=== PATIENT | female | born 1950 | race Caucasian/White ===

== ENCOUNTER 2021-08-03 01:14 | Emergency (ER) | payer MEDICARE ==
[2021-08-03] MEDS ORDERED: PERCOCET 5-3251 EACH PO (04:19)
== END 2021-08-03 04:40 | disposition home or self-care (01) ==
LOC: FER 01:14
DX: S52.501A Unspecified fracture of the lower end of right radius, initial encounter for closed fracture (principal); S52.611A Displaced fracture of right ulna styloid process, initial encounter for closed fracture; I10 Essential (primary) hypertension; F17.210 Nicotine dependence, cigarettes, uncomplicated; W06.XXXA Fall from bed, initial encounter; Y92.009 Unspecified place in unspecified non-institutional (private) residence as the place of occurrence of the external cause
CPT/HCPCS: 73100; 73110; 96374; 99152; J1170

== ENCOUNTER → 2021-08-13 | Day surgery (SDC) | payer MEDICARE ==
[~2021-08-13] VITALS: Ht 170.2 cm; Wt 83.9 kg
[~2021-08-13] MED LIST: ASPIRIN EC81 M1 PO; ATORVASTATIN CA40 MG PO; CARVEDILOL3.125 MG PO; CLOPIDOGREL75 MG PO; ESCITALOPRAM OX20 MG PO; ISOSORBIDE MONO30 MG PO; LISINOPRIL2.5 MG PO; LORAZEPAM 0.5M0.5 MG PO; MONTELUKAST SOD10 MG PO; NITROGLYCERIN0.4 MG SL; PERCOCET 5-3251 EACH PO; ROPINIROLE HCL2 MG PO; SPIRONOLACTONE25 M1 PO; VENTOLIN HFA18 GM INH
[2021-08-13 06:56] LABS: HCT 39.2 % (37.0-47.0); HGB 13.2 g/dl (12.5-16.0); MCH 29.7 pg (25.0-31.0); MCHC 33.7 g/dL (32.0-36.0); MCV 88.1 fL (78.0-100.0); MPV 9.1 fL (6.0-9.5); RBC 4.45 M/uL (4.20-5.40); RDW 14.5 % (11.5-14.0); WBC 7.5 K/uL (4.0-10.5)
[2021-08-13 07:14] LABS: ALBUMIN 3.8 g/dL (3.4-5.0); BILIRUBIN - TOTAL 0.4 mg/dL (0.2-1.0); BUN/CREAT RATIO (CALC) 16.1 RATIO; CREATININE 0.93 mg/dL (0.51-0.95); GLOBULIN (CALCULATION) 3.6 g/dL; TOTAL PROTEIN 7.4 g/dL (6.4-8.2)
== END | disposition home or self-care (01) ==
LOC: FAS 05:54
PROVIDERS: Orthopaedic Surgery
DX: S52.571A Other intraarticular fracture of lower end of right radius, initial encounter for closed fracture (principal); W06.XXXA Fall from bed, initial encounter
CPT/HCPCS: 36415; 71045; 73100; 76000; 80053; 93005; J0690; J1100; J1170; J2250; J2405; J2704; J2795; J7120